=== PATIENT | female | born 1980 | race Caucasian/White ===

== ENCOUNTER 2021-06-08 08:00 | Outpatient (CLI) | payer OTHER | END 2021-06-08 23:59 | LOC: LAB.N 08:00 | PROVIDERS: ATTEND Family Medicine | DX: R05.9 Cough, unspecified (principal); R09.81 Nasal congestion; Z20.822 Contact with and (suspected) exposure to COVID-19 ==

== ENCOUNTER 2022-02-04 09:36 | Outpatient (CLI) | payer OTHER ==
--- NOTE | 2022-02-04 12:35 | Mammography Report ---
BILATERAL DIGITAL DIAGNOSTIC MAMMOGRAM 3D/2D: 02/04/2022 CLINICAL: Palpable right breast lump. Comparison is made to exams dated: 12/11/2018 mammogram and 08/01/2015 mammogram - [facility]. Both breasts are heterogeneously dense, which may obscure small masses (category c / 51-75% glandula r tissue). There are benign cysts in both breasts. No significant masses, calcifications, or other findings are seen in either breast. No abnormality which corresponds with the palpable abnormality is seen. IMPRESSION: INCOMPLETE: NEEDS ADDITIONAL IMAGING EVALUATION There is no abnormality seen in the right breast to correspond with the palpable abnormality in the s ub-areolar depth, however, ultrasound is recommended. Based on the Tyrer Cuzick model (a risk assessment model) the patients lifetime risk is 14.9% and he r 10 year risk is 2.4%. According to the ACR, ACS, and NCCN guidelines, an annual breast MRI exam fanny ng with mammogram is recommended if the patients lifetime risk is 20% or greater. This exam was interpreted at Station ID: [id number]. NOTE: For mammograms, a report in lay terms will be sent to the patient. Approximately 15% of breast malignancies will not be visualized mammographically. In the management of a palpable breast mass, a negative mammogram must not discourage biopsy of a clinically suspicious lesion. Electronically Signed By: Mike Reyes acr/:02/04/2022 10:36:42 ACR BI-RADS Category 0: Incomplete 3340F PARENCHYMAL PATTERN: (D) - The breast(s) demonstrate(s) heterogeneously dense fibroglandular kaity amaro. BI-RADS CATEGORY: (0) - 0 Ultrasound [id number] Immediate follow-up LATERALITY: (R)
--- NOTE | 2022-02-04 12:35 | Ultrasound Report ---
LIMITED ULTRASOUND OF RIGHT BREAST: 02/04/2022 CLINICAL: Palpable right breast lump. Comparison is made to exams dated: 02/04/2022 mammogram - [facility], 12/11/2018 mamm ogram, and 08/01/2015 mammogram - [facility]. Color flow ultrasound of the right breast 6 o'clock, and retroareolar regions was performed. [place] sc devang images of the real-time examination were reviewed. There are benign cysts in both breasts. There is a benign 0.7 cm x 0.4 cm x 0.7 cm simple cyst in the right breast central to the nipple post erior depth. This correlates as palpated. IMPRESSION: BENIGN There is no sonographic evidence of malignancy. The 0.7 cm x 0.4 cm x 0.7 cm simple cyst in the right breast is benign. A 1 year screening mammogram is recommended. This exam was interpreted at Station ID: [id number]. Electronically Signed By: Mike Reyes acr/:02/04/2022 10:44:17 Ultrasound BI-RADS: 2 Benign BI-RADS CATEGORY: (2) - 2 RECOMMENDATION: (ANNUAL) - Recommend routine annual screening mammography. [id number] 1 year screening LATERALITY: (B)
== END 2022-02-04 09:37 | disposition home or self-care (01) ==
LOC: DI 09:36
PROVIDERS: ATTEND Physician Assistant
DX: N60.01 Solitary cyst of right breast (principal)

== ENCOUNTER 2022-06-21 08:00 | Outpatient (CLI) | payer OTHER | END 2022-06-21 23:59 | disposition home or self-care (01) | LOC: LAB.N 08:00 | PROVIDERS: ATTEND Nurse Practitioner | DX: J02.9 Acute pharyngitis, unspecified (principal) | CPT/HCPCS: 87070 ==